=== PATIENT | male | born 1985 | race Caucasian/White ===

== ENCOUNTER 2018-12-09 08:17 | Day surgery (SDC) | payer OTHER ==
[~2018-12-09] VITALS: Ht 170.2 cm; Wt 101.6 kg
[2018-12-09] VITALS (10 sets, daily range): BP systolic 115–137; BP diastolic 69–83; PULSE 52–70; RESP 14–21; Ht 170.2 cm; Wt 101.6 kg
[2018-12-09] MEDS ORDERED: AMLO5TAB4 PO (08:59)
[2018-12-09] MEDS ORDERED: SOD CHLORIDE 0.9% 1,000 ML IV SCH (09:02)
[2018-12-09] MEDS ORDERED: LIDOCAINE 1% (MDV) 20 ML INJ ONE (09:49)
[2018-12-09] MEDS ORDERED: MIDAZOLAM 1 MG/ML 2 ML INJ ONE (10:14)
[2018-12-09] MEDS ORDERED: FENTAnyl 50 MCG/ML VIAL ONE (10:15)
--- NOTE | 2018-12-09 11:33 | HPN ---
Date/Time of Note Date/Time of Note DATE: 12/09/18 TIME: 11:33 Interval H&P Admission Note Pt. seen H&P reviewed: No system changes WILL JOSEPH MD Dec 09, 2018 11:33
== END 2018-12-09 13:56 | disposition home or self-care (01) ==
LOC: RAD 08:17 → SDS 08:17 → RAD 13:56
PROVIDERS: ATTEND Nuclear Medicine
DX: K86.3 Pseudocyst of pancreas (principal)
CPT/HCPCS: 75989; 77012; 85025; 87070; 87075; C1729; J2250; J3010

== ENCOUNTER 2019-01-12 12:05 | Inpatient (IN) | payer OTHER ==
[~2019-01-12] VITALS: Ht 172.7 cm; Wt 96.2 kg
[~2019-01-12 12:05] MED LIST: AMLO5TAB4 PO; AMOX1TAB10 PO; CIPR500T4 PO; CLON0.5T26 PO; HYDR-3601 PO; HYDR-4011 PO; OMEP20CA16 PO; ONDA24TA2 PO; TRA100 PO
[2019-01-12] MEDS ORDERED: HYDROmorphONE 0.5 MG/0.5 ML SYG IV STA (12:47)
[2019-01-12] MEDS ORDERED: ONDANSETRON 4 MG INJ IV STA (12:47)
[2019-01-12] MEDS ORDERED: PIPER-TAZO 3.375 GM IV (PMX) 100 ML IVPB ONE (13:00)
[2019-01-12] MEDS ORDERED: IOHEXOL 300MG/ML 150 ML BTL ONE (13:35)
[2019-01-12] MEDS ORDERED: SOD CHLORIDE 0.9% 100 ML ONE (13:35)
[2019-01-12] MEDS ORDERED: METOCLOPRAMIDE 10 MG INJ IV ONE (14:30)
[2019-01-12] MEDS ORDERED: NACL 0.9% 3 ML SYG IV SCH (16:30)
[2019-01-12] MEDS ORDERED: GLUCOSE GEL 15 GRAM TUBE PO PRN ×2 (17:00)
[2019-01-12] MEDS ORDERED: DEXTROSE 50% 50 ML SYRINGE IV PRN ×2 (17:00)
[2019-01-12] MEDS ORDERED: GLUCAGON 1 MG INJ IM PRN (17:00)
[2019-01-12] MEDS ORDERED: GLUCOSE GEL 15 GRAM TUBE BUCCAL PRN (17:00)
[2019-01-12] MEDS: NICOTINE (7 MG/24 HR) PATCH TRANSDERM SCH (17:29)
[2019-01-12 18:45] VITALS: BP 140/75; PULSE 96; RESP 18; Ht 172.7 cm; Wt 96.2 kg
[2019-01-12] MEDS: ACETAMINOPHEN 325 MG TAB PO PRN (19:03)
[2019-01-12] MEDS: INSULIN ASPART [NOVOLOG] 3 ML PEN SC SCH ×2 (19:25→22:17)
[2019-01-12] MEDS ORDERED: HYDROmorphONE 1 MG/ML SYG IV PRN (20:00)
[2019-01-12 20:03] VITALS: BP 138/88; PULSE 93; RESP 18
[2019-01-12] MEDS: ONDANSETRON 4 MG INJ IV PRN (20:35)
[2019-01-12] MEDS: traZODone 100 MG TAB PO SCH (22:15)
[2019-01-12] MEDS: AL HYDROX/MG HYDROX/SIMETH 30 ML CUP PO PRN (22:15)
[2019-01-13 02:00] VITALS: BP 129/69; PULSE 107; RESP 18
[2019-01-13] MEDS: ACCU-CHEK XX SCH (02:00)
[2019-01-13] MEDS: ACETAMINOPHEN 325 MG TAB PO PRN ×3 (02:41→16:50)
[2019-01-13] MEDS: ONDANSETRON 4 MG INJ IV PRN ×4 (02:44→22:07)
[2019-01-13 08:36] VITALS: BP 141/82; PULSE 99; RESP 17
[2019-01-13] MEDS: AL HYDROX/MG HYDROX/SIMETH 30 ML CUP PO PRN (08:42)
[2019-01-13] MEDS: AMLODIPINE 5 MG TAB PO SCH (08:42)
[2019-01-13] MEDS: SERTRALINE 100 MG TAB PO SCH (08:42)
[2019-01-13] MEDS: NICOTINE (7 MG/24 HR) PATCH TRANSDERM SCH (08:44)
[2019-01-13] MEDS: INSULIN ASPART [NOVOLOG] 3 ML PEN SC SCH ×4 (08:54→21:00)
[2019-01-13] MEDS: PANTOPRAZOLE 40 MG INJ IV SCH (11:39)
[2019-01-13] MEDS: morphine 2 MG INJ IV PRN ×3 (11:39→23:51)
[2019-01-13] MEDS: clonAZEPAM 0.5 MG TAB PO PRN (11:54)
[2019-01-13] MEDS: LOPERAMIDE 2 MG CAP PO PRN ×2 (13:17→22:07)
[2019-01-13] MEDS: SOD CHLORIDE 0.9% 1,000 ML IV SCH ×3 (15:47→23:56)
[2019-01-13 16:10] VITALS: BP 121/72; PULSE 102; RESP 18
[2019-01-13 19:39] VITALS: BP 130/56; PULSE 96; RESP 17
[2019-01-13] MEDS: traZODone 100 MG TAB PO SCH (22:07)
[2019-01-14] MEDS: ACCU-CHEK XX SCH (02:00)
[2019-01-14 02:07] VITALS: BP 109/70; PULSE 97; RESP 18
[2019-01-14] MEDS: morphine 2 MG INJ IV PRN ×4 (07:12→21:40)
[2019-01-14 08:21] VITALS: BP 129/59; PULSE 96; RESP 18
[2019-01-14] MEDS: SOD CHLORIDE 0.9% 1,000 ML IV SCH ×4 (09:52→23:30)
[2019-01-14] MEDS: SERTRALINE 100 MG TAB PO SCH (09:53)
[2019-01-14] MEDS: PANTOPRAZOLE 40 MG INJ IV SCH (09:53)
[2019-01-14] MEDS: AMLODIPINE 5 MG TAB PO SCH (09:53)
[2019-01-14] MEDS: NICOTINE (7 MG/24 HR) PATCH TRANSDERM SCH (09:53)
[2019-01-14] MEDS: INSULIN ASPART [NOVOLOG] 3 ML PEN SC SCH ×4 (09:55→20:36)
[2019-01-14] MEDS: ONDANSETRON 4 MG INJ IV PRN ×2 (10:18→17:49)
[2019-01-14] MEDS: AL HYDROX/MG HYDROX/SIMETH 30 ML CUP PO PRN (10:49)
[2019-01-14] MEDS: clonAZEPAM 0.5 MG TAB PO PRN (11:25)
[2019-01-14] MEDS: ACETAMINOPHEN 325 MG TAB PO PRN ×2 (12:35→20:31)
[2019-01-14] MEDS: MEROPENEM 1 GM/50ML(PMX) 50 ML IVPB SCH ×2 (13:54→21:48)
[2019-01-14 14:02] VITALS: BP 120/59; PULSE 94; RESP 18
[2019-01-14] MEDS: HYDROCODONE/APAP (5/325) TAB PO PRN (18:05)
[2019-01-14 20:13] VITALS: BP 133/75; PULSE 102; RESP 16
[2019-01-14] MEDS: traZODone 100 MG TAB PO SCH (20:30)
[2019-01-15] MEDS: SOD CHLORIDE 0.9% 1,000 ML IV SCH ×4 (01:42→23:30)
[2019-01-15] MEDS: morphine 2 MG INJ IV PRN ×4 (01:46→20:05)
[2019-01-15] MEDS: ONDANSETRON 4 MG INJ IV PRN ×4 (01:46→20:31)
[2019-01-15] MEDS: ACCU-CHEK XX SCH (02:00)
[2019-01-15 02:11] VITALS: BP 122/60; PULSE 103; RESP 18
[2019-01-15] MEDS: MEROPENEM 1 GM/50ML(PMX) 50 ML IVPB SCH ×3 (06:18→22:17)
[2019-01-15 07:53] VITALS: BP 126/70; PULSE 94; RESP 16
[2019-01-15] MEDS: INSULIN ASPART [NOVOLOG] 3 ML PEN SC SCH ×4 (08:00→21:00)
[2019-01-15] MEDS: PANTOPRAZOLE 40 MG INJ IV SCH (09:01)
[2019-01-15] MEDS: SERTRALINE 100 MG TAB PO SCH (09:01)
[2019-01-15] MEDS: AMLODIPINE 5 MG TAB PO SCH (09:02)
[2019-01-15] MEDS: NICOTINE (7 MG/24 HR) PATCH TRANSDERM SCH (09:02)
[2019-01-15] MEDS: clonAZEPAM 0.5 MG TAB PO PRN (10:08)
[2019-01-15] MEDS ORDERED: VANCOMYCIN IV PER PHARMACY XX SCH (10:30)
[2019-01-15] MEDS: LOPERAMIDE 2 MG CAP PO PRN ×2 (11:21→20:15)
[2019-01-15] MEDS ORDERED: VANCOMYCIN HCL 2 GM in SOD CHLORIDE 0.9% 500 ML IVPB ONE (12:00)
[2019-01-15] MEDS ORDERED: POTASSIUM CHLORIDE 20 MEQ POWDER FOR ORAL SOLN PO ONE (14:00)
[2019-01-15 14:49] VITALS: BP 134/82; PULSE 107; RESP 18
[2019-01-15] MEDS: ACETAMINOPHEN 325 MG TAB PO PRN (14:56)
[2019-01-15] MEDS: HYDROCODONE/APAP (5/325) TAB PO PRN (16:04)
[2019-01-15] MEDS: traZODone 100 MG TAB PO SCH (20:10)
[2019-01-15 20:15] VITALS: BP 109/65; PULSE 82; RESP 18
[2019-01-15] MEDS: VANCOMYCIN 1.25 GM/NS 250 ML 250 ML IVPB SCH (20:16)
[2019-01-16] MEDS: ACCU-CHEK XX SCH (02:00)
[2019-01-16 02:46] VITALS: BP 124/76; PULSE 87; RESP 16
[2019-01-16] MEDS: VANCOMYCIN 1.25 GM/NS 250 ML 250 ML IVPB SCH (04:29)
[2019-01-16] MEDS: SOD CHLORIDE 0.9% 1,000 ML IV SCH ×2 (04:37→07:30)
[2019-01-16] MEDS: morphine 2 MG INJ IV PRN ×4 (06:09→19:39)
[2019-01-16] MEDS: MEROPENEM 1 GM/50ML(PMX) 50 ML IVPB SCH (06:13)
[2019-01-16] MEDS: INSULIN ASPART [NOVOLOG] 3 ML PEN SC SCH ×4 (08:00→21:00)
[2019-01-16 08:13] VITALS: BP 137/80; PULSE 88; RESP 17
[2019-01-16] MEDS: PANTOPRAZOLE 40 MG INJ IV SCH (09:11)
[2019-01-16] MEDS: SERTRALINE 100 MG TAB PO SCH (09:12)
[2019-01-16] MEDS: AMLODIPINE 5 MG TAB PO SCH (09:12)
[2019-01-16] MEDS: NICOTINE (7 MG/24 HR) PATCH TRANSDERM SCH (09:12)
[2019-01-16] MEDS: ONDANSETRON 4 MG INJ IV PRN (09:27)
[2019-01-16] MEDS: LOPERAMIDE 2 MG CAP PO PRN (10:27)
[2019-01-16] MEDS: PIPER-TAZO 3.375 GM IV (PMX) 100 ML IVPB SCH ×3 (12:33→23:45)
[2019-01-16] MEDS: HYDROCODONE/APAP (5/325) TAB PO PRN ×2 (12:33→21:03)
[2019-01-16] MEDS: clonAZEPAM 0.5 MG TAB PO PRN (12:40)
[2019-01-16 14:05] VITALS: BP 121/59; PULSE 94; RESP 16
[2019-01-16] MEDS: traZODone 100 MG TAB PO SCH (21:00)
[2019-01-16 21:01] VITALS: BP 116/64; PULSE 95; RESP 17
[2019-01-17 01:54] VITALS: BP 97/51; PULSE 70; RESP 18
[2019-01-17] MEDS: ACCU-CHEK XX SCH (02:00)
[2019-01-17] MEDS: PIPER-TAZO 3.375 GM IV (PMX) 100 ML IVPB SCH ×4 (05:55→23:16)
[2019-01-17] MEDS: morphine 2 MG INJ IV PRN ×3 (06:04→20:50)
[2019-01-17 07:57] VITALS: BP 121/69; PULSE 68; RESP 18
[2019-01-17] MEDS: INSULIN ASPART [NOVOLOG] 3 ML PEN SC SCH ×4 (08:00→21:00)
[2019-01-17] MEDS ORDERED: MIDAZOLAM 1 MG/ML 2 ML INJ ONE (08:45)
[2019-01-17] MEDS ORDERED: FENTAnyl 50 MCG/ML VIAL ONE (08:45)
[2019-01-17] MEDS ORDERED: LIDOCAINE 1% (MDV) 20 ML INJ ONE (08:55)
[2019-01-17] MEDS: SERTRALINE 100 MG TAB PO SCH ×2 (09:00→12:39)
[2019-01-17] MEDS: AMLODIPINE 5 MG TAB PO SCH ×2 (09:00→12:39)
[2019-01-17] MEDS: PANTOPRAZOLE 40 MG INJ IV SCH ×2 (09:00→12:38)
[2019-01-17] MEDS: NICOTINE (7 MG/24 HR) PATCH TRANSDERM SCH ×2 (09:00→12:39)
[2019-01-17 12:24] VITALS: BP 117/70; PULSE 85; RESP 20
[2019-01-17] MEDS: clonAZEPAM 0.5 MG TAB PO PRN (13:03)
[2019-01-17 15:20] VITALS: BP 127/60; PULSE 78; RESP 16
[2019-01-17] MEDS: HYDROCODONE/APAP (5/325) TAB PO PRN (19:22)
[2019-01-17 20:09] VITALS: BP 118/72; PULSE 90; RESP 16
[2019-01-17] MEDS: traZODone 100 MG TAB PO SCH (20:50)
[2019-01-17] MEDS: HEPARIN 5,000 UNIT/1 ML VIAL SC SCH (20:54)
[2019-01-18 01:48] VITALS: BP 109/62; PULSE 70; RESP 18
[2019-01-18] MEDS: ACCU-CHEK XX SCH (02:00)
[2019-01-18] MEDS: morphine 2 MG INJ IV PRN ×4 (05:12→20:59)
[2019-01-18] MEDS: PIPER-TAZO 3.375 GM IV (PMX) 100 ML IVPB SCH ×3 (05:12→17:19)
[2019-01-18 07:38] VITALS: BP 115/75; PULSE 62; RESP 18
[2019-01-18] MEDS: INSULIN ASPART [NOVOLOG] 3 ML PEN SC SCH ×4 (08:00→20:17)
[2019-01-18] MEDS ORDERED: POTASSIUM CHLORIDE (SR) 20 MEQ TAB PO STA (08:14)
[2019-01-18] MEDS: SERTRALINE 100 MG TAB PO SCH (09:08)
[2019-01-18] MEDS: PANTOPRAZOLE 40 MG INJ IV SCH (09:09)
[2019-01-18] MEDS: NICOTINE (7 MG/24 HR) PATCH TRANSDERM SCH (09:09)
[2019-01-18] MEDS: AMLODIPINE 5 MG TAB PO SCH (09:09)
[2019-01-18] MEDS: HEPARIN 5,000 UNIT/1 ML VIAL SC SCH ×2 (09:10→20:23)
[2019-01-18] MEDS: clonAZEPAM 0.5 MG TAB PO PRN ×2 (09:11→20:16)
[2019-01-18] MEDS: HYDROCODONE/APAP (5/325) TAB PO PRN ×2 (12:31→18:47)
[2019-01-18 14:15] VITALS: BP 101/57; PULSE 81; RESP 18
[2019-01-18 19:37] VITALS: BP 103/59; PULSE 85; RESP 20
[2019-01-18] MEDS: traZODone 100 MG TAB PO SCH (20:16)
[2019-01-19 01:13] VITALS: BP 113/66; PULSE 66; RESP 18
[2019-01-19] MEDS: PIPER-TAZO 3.375 GM IV (PMX) 100 ML IVPB SCH ×4 (01:14→18:10)
[2019-01-19] MEDS: ACCU-CHEK XX SCH (02:00)
[2019-01-19] MEDS: morphine 2 MG INJ IV PRN ×3 (06:09→15:55)
[2019-01-19 07:36] VITALS: BP 129/78; PULSE 67; RESP 17
[2019-01-19] MEDS: INSULIN ASPART [NOVOLOG] 3 ML PEN SC SCH ×4 (08:00→21:00)
[2019-01-19] MEDS: NICOTINE (7 MG/24 HR) PATCH TRANSDERM SCH (08:58)
[2019-01-19] MEDS: SERTRALINE 100 MG TAB PO SCH (08:58)
[2019-01-19] MEDS: PANTOPRAZOLE 40 MG INJ IV SCH (08:58)
[2019-01-19] MEDS: AMLODIPINE 5 MG TAB PO SCH (08:59)
[2019-01-19] MEDS: clonAZEPAM 0.5 MG TAB PO PRN (09:07)
[2019-01-19] MEDS: HEPARIN 5,000 UNIT/1 ML VIAL SC SCH ×2 (09:07→21:36)
[2019-01-19 14:08] VITALS: BP 134/75; PULSE 84; RESP 17
[2019-01-19] MEDS: ONDANSETRON 4 MG INJ IV PRN (15:55)
[2019-01-19 20:04] VITALS: BP 119/68; PULSE 71; RESP 16
[2019-01-19] MEDS: traZODone 100 MG TAB PO SCH (21:25)
[2019-01-20] MEDS: PIPER-TAZO 3.375 GM IV (PMX) 100 ML IVPB SCH ×4 (00:57→18:00)
[2019-01-20] MEDS: ACCU-CHEK XX SCH (02:00)
[2019-01-20 03:00] VITALS: BP 122/78; PULSE 58; RESP 17
[2019-01-20 07:55] VITALS: BP 140/90; PULSE 71; RESP 17
[2019-01-20] MEDS: INSULIN ASPART [NOVOLOG] 3 ML PEN SC SCH ×4 (08:00→20:24)
[2019-01-20] MEDS: AMLODIPINE 5 MG TAB PO SCH (08:11)
[2019-01-20] MEDS: PANTOPRAZOLE 40 MG INJ IV SCH (08:12)
[2019-01-20] MEDS: SERTRALINE 100 MG TAB PO SCH (08:12)
[2019-01-20] MEDS: NICOTINE (7 MG/24 HR) PATCH TRANSDERM SCH (08:18)
[2019-01-20] MEDS: HEPARIN 5,000 UNIT/1 ML VIAL SC SCH ×2 (08:18→20:27)
[2019-01-20] MEDS: HYDROCODONE/APAP (5/325) TAB PO PRN ×2 (09:13→19:41)
[2019-01-20] MEDS: clonAZEPAM 0.5 MG TAB PO PRN (09:13)
[2019-01-20] MEDS: ONDANSETRON 4 MG INJ IV PRN (12:48)
[2019-01-20] MEDS: morphine 2 MG INJ IV PRN (14:44)
[2019-01-20 15:13] VITALS: BP 117/82; PULSE 109; RESP 18
[2019-01-20 19:45] VITALS: BP 114/69; PULSE 68; RESP 17
[2019-01-20] MEDS: traZODone 100 MG TAB PO SCH (20:22)
[2019-01-21] MEDS: PIPER-TAZO 3.375 GM IV (PMX) 100 ML IVPB SCH ×4 (00:09→17:46)
[2019-01-21] MEDS: ACCU-CHEK XX SCH (01:19)
[2019-01-21 03:06] VITALS: BP 104/66; PULSE 86; RESP 17
[2019-01-21 07:47] VITALS: BP 117/81; PULSE 70; RESP 18
[2019-01-21] MEDS: INSULIN ASPART [NOVOLOG] 3 ML PEN SC SCH ×4 (08:00→20:37)
[2019-01-21] MEDS: morphine 2 MG INJ IV PRN ×2 (08:25→20:37)
[2019-01-21] MEDS: PANTOPRAZOLE 40 MG INJ IV SCH (09:26)
[2019-01-21] MEDS: SERTRALINE 100 MG TAB PO SCH (09:26)
[2019-01-21] MEDS: NICOTINE (7 MG/24 HR) PATCH TRANSDERM SCH (09:27)
[2019-01-21] MEDS: AMLODIPINE 5 MG TAB PO SCH (09:27)
[2019-01-21] MEDS: HEPARIN 5,000 UNIT/1 ML VIAL SC SCH ×2 (09:31→20:45)
[2019-01-21] MEDS: clonAZEPAM 0.5 MG TAB PO PRN ×2 (09:50→20:37)
[2019-01-21] MEDS: ONDANSETRON 4 MG INJ IV PRN (09:50)
[2019-01-21 13:56] VITALS: BP 106/62; PULSE 82; RESP 16
[2019-01-21] MEDS: HYDROCODONE/APAP (5/325) TAB PO PRN ×2 (14:01→18:28)
[2019-01-21 20:17] VITALS: BP 118/60; PULSE 72; RESP 20
[2019-01-21] MEDS: traZODone 100 MG TAB PO SCH (20:36)
[2019-01-22] MEDS: PIPER-TAZO 3.375 GM IV (PMX) 100 ML IVPB SCH ×4 (00:16→17:20)
[2019-01-22 01:58] VITALS: BP 102/63; PULSE 59; RESP 16
[2019-01-22] MEDS: ACCU-CHEK XX SCH (02:00)
[2019-01-22] MEDS: PANTOPRAZOLE (EC) 40 MG TAB PO SCH (05:40)
[2019-01-22] MEDS: morphine 2 MG INJ IV PRN ×3 (06:19→18:43)
[2019-01-22] MEDS: HYDROCODONE/APAP (5/325) TAB PO PRN ×3 (07:34→21:33)
[2019-01-22] MEDS: clonAZEPAM 0.5 MG TAB PO PRN ×2 (07:34→20:30)
[2019-01-22 08:24] VITALS: BP 124/82; PULSE 66; RESP 18
[2019-01-22] MEDS: AMLODIPINE 5 MG TAB PO SCH (08:34)
[2019-01-22] MEDS: SERTRALINE 100 MG TAB PO SCH (08:35)
[2019-01-22] MEDS: NICOTINE (7 MG/24 HR) PATCH TRANSDERM SCH (08:35)
[2019-01-22] MEDS: HEPARIN 5,000 UNIT/1 ML VIAL SC SCH ×2 (08:40→20:34)
[2019-01-22] MEDS: INSULIN ASPART [NOVOLOG] 3 ML PEN SC SCH ×4 (08:41→20:31)
[2019-01-22] MEDS: AL HYDROX/MG HYDROX/SIMETH 30 ML CUP PO PRN (08:47)
[2019-01-22] MEDS: ONDANSETRON 4 MG INJ IV PRN (09:28)
[2019-01-22 15:12] VITALS: BP 114/69; PULSE 98; RESP 16
[2019-01-22] MEDS ORDERED: CALCIUM CARBONATE 500 MG CHEW TAB PO PRN (19:00)
[2019-01-22] MEDS ORDERED: CALCIUM CARBONATE 500 MG CHEW TAB PO SCH (19:00)
[2019-01-22] MEDS: traZODone 100 MG TAB PO SCH (20:31)
[2019-01-22 21:30] VITALS: BP 120/70; PULSE 81; RESP 18
[2019-01-23] MEDS: PIPER-TAZO 3.375 GM IV (PMX) 100 ML IVPB SCH ×4 (00:21→17:25)
[2019-01-23] MEDS: ACCU-CHEK XX SCH (02:00)
[2019-01-23] MEDS: morphine 2 MG INJ IV PRN ×5 (02:19→22:48)
[2019-01-23] MEDS: PANTOPRAZOLE (EC) 40 MG TAB PO SCH (05:53)
[2019-01-23 07:45] VITALS: BP 108/78; PULSE 70; RESP 18
[2019-01-23] MEDS: INSULIN ASPART [NOVOLOG] 3 ML PEN SC SCH ×4 (08:00→20:53)
[2019-01-23] MEDS: SERTRALINE 100 MG TAB PO SCH (08:06)
[2019-01-23] MEDS: AMLODIPINE 5 MG TAB PO SCH (08:06)
[2019-01-23] MEDS: NICOTINE (7 MG/24 HR) PATCH TRANSDERM SCH (08:07)
[2019-01-23] MEDS: HEPARIN 5,000 UNIT/1 ML VIAL SC SCH ×2 (08:09→20:51)
[2019-01-23] MEDS: clonAZEPAM 0.5 MG TAB PO PRN (08:11)
[2019-01-23] MEDS ORDERED: IOHEXOL 14.3 MG(I)/ML (ADULT) BTL PO ONE (13:30)
[2019-01-23 14:00] VITALS: BP_SYST 119; BP_SYST 99; BP_DIAS 56; BP_DIAS 65; PULSE 52; RESP 17
[2019-01-23] MEDS: HYDROCODONE/APAP (5/325) TAB PO PRN ×2 (14:35→20:46)
[2019-01-23 19:40] VITALS: BP 110/58; PULSE 79; RESP 18
[2019-01-23] MEDS: traZODone 100 MG TAB PO SCH (20:46)
[2019-01-24] MEDS: PIPER-TAZO 3.375 GM IV (PMX) 100 ML IVPB SCH ×4 (00:02→17:43)
[2019-01-24 01:16] VITALS: BP 94/55; PULSE 65; RESP 17
[2019-01-24] MEDS: ACCU-CHEK XX SCH (02:00)
[2019-01-24] MEDS: PANTOPRAZOLE (EC) 40 MG TAB PO SCH (05:19)
[2019-01-24] MEDS: morphine 2 MG INJ IV PRN ×4 (07:47→22:23)
[2019-01-24] MEDS: INSULIN ASPART [NOVOLOG] 3 ML PEN SC SCH ×4 (08:00→21:00)
[2019-01-24] MEDS: SERTRALINE 100 MG TAB PO SCH (08:09)
[2019-01-24] MEDS: NICOTINE (7 MG/24 HR) PATCH TRANSDERM SCH (08:10)
[2019-01-24] MEDS: HEPARIN 5,000 UNIT/1 ML VIAL SC SCH ×2 (08:11→21:06)
[2019-01-24] MEDS: clonAZEPAM 0.5 MG TAB PO PRN ×2 (08:12→21:00)
[2019-01-24] MEDS: AMLODIPINE 5 MG TAB PO SCH (08:12)
[2019-01-24 08:16] VITALS: BP 117/73; PULSE 71; RESP 18
[2019-01-24] MEDS: HYDROCODONE/APAP (5/325) TAB PO PRN ×2 (15:27→21:00)
[2019-01-24 15:34] VITALS: BP 116/65; PULSE 94; RESP 18
[2019-01-24] MEDS: traZODone 100 MG TAB PO SCH (21:00)
[2019-01-25] MEDS: PIPER-TAZO 3.375 GM IV (PMX) 100 ML IVPB SCH ×5 (00:23→23:38)
[2019-01-25 02:00] VITALS: BP 101/59; PULSE 74; RESP 17
[2019-01-25] MEDS: ACCU-CHEK XX SCH (02:00)
[2019-01-25] MEDS: morphine 2 MG INJ IV PRN ×4 (04:49→20:24)
[2019-01-25] MEDS: PANTOPRAZOLE (EC) 40 MG TAB PO SCH (06:00)
[2019-01-25 07:59] VITALS: BP 120/77; PULSE 85; RESP 18
[2019-01-25] MEDS: INSULIN ASPART [NOVOLOG] 3 ML PEN SC SCH ×4 (08:00→20:22)
[2019-01-25] MEDS: HYDROCODONE/APAP (5/325) TAB PO PRN ×3 (08:35→18:00)
[2019-01-25] MEDS: SERTRALINE 100 MG TAB PO SCH (08:55)
[2019-01-25] MEDS: NICOTINE (7 MG/24 HR) PATCH TRANSDERM SCH (08:55)
[2019-01-25] MEDS: AMLODIPINE 5 MG TAB PO SCH (08:56)
[2019-01-25] MEDS: HEPARIN 5,000 UNIT/1 ML VIAL SC SCH ×2 (09:00→20:23)
[2019-01-25] MEDS ORDERED: IOHEXOL 14.3 MG(I)/ML (ADULT) BTL PO ONE (10:30)
[2019-01-25] MEDS ORDERED: IOHEXOL 300MG/ML 150 ML BTL ONE (14:32)
[2019-01-25] MEDS ORDERED: SOD CHLORIDE 0.9% 100 ML ONE (14:32)
[2019-01-25 15:40] VITALS: BP 104/66; PULSE 88; RESP 16
[2019-01-25 19:54] VITALS: BP 102/52; PULSE 55; RESP 20
[2019-01-25] MEDS: traZODone 100 MG TAB PO SCH (20:18)
[2019-01-26] MEDS: ACCU-CHEK XX SCH (02:00)
[2019-01-26] MEDS: morphine 2 MG INJ IV PRN ×5 (02:07→18:46)
[2019-01-26 02:15] VITALS: BP 102/57; PULSE 69; RESP 16
[2019-01-26] MEDS: PIPER-TAZO 3.375 GM IV (PMX) 100 ML IVPB SCH (05:49)
[2019-01-26] MEDS: PANTOPRAZOLE (EC) 40 MG TAB PO SCH (05:49)
[2019-01-26 07:55] VITALS: BP 108/70; PULSE 70; RESP 17
[2019-01-26] MEDS: INSULIN ASPART [NOVOLOG] 3 ML PEN SC SCH ×4 (08:00→20:22)
[2019-01-26] MEDS: SERTRALINE 100 MG TAB PO SCH (08:37)
[2019-01-26] MEDS: HYDROCODONE/APAP (5/325) TAB PO PRN ×2 (08:37→20:29)
[2019-01-26] MEDS: AMOXICILLIN/CLAV 875 MG TAB PO SCH ×2 (08:38→20:20)
[2019-01-26] MEDS: NICOTINE (7 MG/24 HR) PATCH TRANSDERM SCH (08:38)
[2019-01-26] MEDS: AMLODIPINE 5 MG TAB PO SCH (08:40)
[2019-01-26] MEDS: HEPARIN 5,000 UNIT/1 ML VIAL SC SCH ×2 (08:43→20:25)
[2019-01-26 15:16] VITALS: BP 108/74; PULSE 93; RESP 17
[2019-01-26] MEDS: CIPROFLOXACIN 500 MG TAB PO SCH (17:36)
[2019-01-26 19:39] VITALS: BP 109/58; PULSE 84; RESP 16
[2019-01-26] MEDS: traZODone 100 MG TAB PO SCH (20:20)
[2019-01-27 01:59] VITALS: BP 112/61; PULSE 74; RESP 17
[2019-01-27] MEDS: ACCU-CHEK XX SCH (02:00)
[2019-01-27] MEDS: morphine 2 MG INJ IV PRN ×2 (02:48→06:52)
[2019-01-27] MEDS: PANTOPRAZOLE (EC) 40 MG TAB PO SCH (06:12)
[2019-01-27] MEDS: CIPROFLOXACIN 500 MG TAB PO SCH (06:12)
[2019-01-27 07:53] VITALS: BP 114/66; PULSE 78; RESP 18
[2019-01-27] MEDS: INSULIN ASPART [NOVOLOG] 3 ML PEN SC SCH ×2 (09:00→12:00)
[2019-01-27] MEDS: HEPARIN 5,000 UNIT/1 ML VIAL SC SCH (09:01)
[2019-01-27] MEDS: AMOXICILLIN/CLAV 875 MG TAB PO SCH (09:01)
[2019-01-27] MEDS: SERTRALINE 100 MG TAB PO SCH (09:02)
[2019-01-27] MEDS: NICOTINE (7 MG/24 HR) PATCH TRANSDERM SCH (09:03)
[2019-01-27] MEDS: AMLODIPINE 5 MG TAB PO SCH (09:03)
[2019-01-27] MEDS: HYDROCODONE/APAP (5/325) TAB PO PRN ×2 (09:10→12:37)
[2019-01-27] MEDS: clonAZEPAM 0.5 MG TAB PO PRN (09:10)
== END 2019-01-27 14:35 | disposition home health service (06) | DRG 405 ==
LOC: E/R 12:05 → 2NE 15:17
PROVIDERS: ADMIT Internal Medicine; ATTEND Internal Medicine
PROC: 0FP Hepatobiliary System and Pancreas, Removal (ICD-10-PCS; principal; 2019-01-17)
PROC: 0FH Hepatobiliary System and Pancreas, Insertion (ICD-10-PCS; 2019-01-17)
DX: K86.3 Pseudocyst of pancreas (principal); K85.80 Other acute pancreatitis without necrosis or infection; F33.2 Major depressive disorder, recurrent severe without psychotic features; E11.9 Type 2 diabetes mellitus without complications; I10 Essential (primary) hypertension; K52.9 Noninfective gastroenteritis and colitis, unspecified; F41.8 Other specified anxiety disorders; Z72.0 Tobacco use; F10.10 Alcohol abuse, uncomplicated; B95.2 Enterococcus as the cause of diseases classified elsewhere; B96.89 Other specified bacterial agents as the cause of diseases classified elsewhere
CPT/HCPCS: 36415; 36573; 71045; 74177; 77012; 80048; 80053; 81003; 82150; 82270; 82962; 83036; 83605; 83690; 83735; 84100; 84145; 84443; 84484; 85025; 85610; 85651; 85730; 86140; 87045; 87070; 87075; 87086; 87177; 87205; 93005; 96374; 96375; C1729; C9113; J1170; J1644; J1815; J2185; J2250; J2270; J2405; J2543; J2765; J3010; J3370; J7030; J7040; Q9967